=== PATIENT | male | born 1990 | race Caucasian/White ===

== ENCOUNTER → 2023-08-17 | Outpatient (CLI) | payer OTHER ==
[~2023-08-17] MED LIST: BACTRIM DS 8001 TA1 PO; DAYPRO600 M1 PO; FLEXERIL5 MG PO; HYDROCODONE BIT1 T11 PO; MOTRIN800 MG PO; PENICILLIN250 MG PO; PIROXICAN10 MG PO; ROBAXIN750 MG PO; SEPTDS PO; TRAMADOL HCL50 MG PO; TRIMOX500 MG PO
== END | disposition home or self-care (01) ==
LOC: ORTHO 02:58
PROVIDERS: ATTEND Orthopaedic Surgery
DX: M25.532 Pain in left wrist (principal); M25.832 Other specified joint disorders, left wrist

== ENCOUNTER → 2024-01-02 | Outpatient (CLI) | payer OTHER ==
[2024-01-02 16:12] LABS: BASO # 0.1 10*3/uL (0.0-0.1); BASO % 0.7 % (0.0-1.0); EOS # 0.2 10*3/uL (0.0-0.4); HEMATOCRIT 44.1 % (42.0-52.0); LYMPH # 2.2 10*3/uL (1.3-4.4); LYMPH % 22.8 % (27.0-41.0); MEAN CELL VOLUME 90.6 fl (80.0-94.0); MEAN CORPUSCULAR HGB 30.2 pg (27.0-31.0); MEAN CORPUSCULAR HGB CONC 33.3 g/dl (33.0-37.0); MEAN PLATELET VOLUME 9.1 fl (9.6-12.3); MONO # 0.6 10*3/uL (0.1-1.0); MONO % 6.3 % (3.0-9.0); NEUT # 6.5 10*3/uL (2.3-7.9); NEUT % 67.9 % (47.0-73.0); PLATELET COUNT AUTOMATED 244 10*3/uL (130-400); RED BLOOD COUNT 4.87 10*6/uL (4.50-5.90); RED CELL DISTRI WIDTH 12.5 % (0-14.5); WHITE BLOOD COUNT 9.6 10*3/uL (4.8-10.8)
[2024-01-02 16:42] LABS: ALKALINE PHOSPHATASE 63 U/L (46-116); BUN 11 mg/dl (9-23); CHLORIDE 102 mmol/L (98-107); CHOLESTEROL 128 mg/dL (<200); FREE T4 0.78 ng/dl (0.89-1.76); LDL CHOLESTEROL 61 mg/dL (9-159); POTASSIUM 3.5 mmol/L (3.4-5.1); SGPT/ALT 21 U/L (5-49); TOTAL PROTEIN 7.1 gm/dL (6.0-8.0); TRIGLYCERIDES 88 mg/dl (<150)
[2024-01-02 16:44] LABS: VITAMIN D, 25-HYDROXY 43.4 ng/mL (30-100)
== END | disposition home or self-care (01) ==
LOC: LAB 15:51
PROVIDERS: ATTEND Internal Medicine
DX: E29.1 Testicular hypofunction (principal); E34.9 Endocrine disorder, unspecified; Z12.5 Encounter for screening for malignant neoplasm of prostate; K21.00 Gastro-esophageal reflux disease with esophagitis, without bleeding; F17.210 Nicotine dependence, cigarettes, uncomplicated

== ENCOUNTER → 2024-09-08 | Outpatient (CLI) | payer OTHER ==
[2024-09-08 09:28] LABS: BASO # 0.1 10*3/uL (0.0-0.1); EOS # 0.1 10*3/uL (0.0-0.4); EOS % 1.9 % (1.0-4.0); HEMATOCRIT 47.1 % (42.0-52.0); MEAN CELL VOLUME 90.1 fl (80.0-94.0); MEAN CORPUSCULAR HGB 29.6 pg (27.0-31.0); MEAN CORPUSCULAR HGB CONC 32.9 g/dl (33.0-37.0); MONO # 0.6 10*3/uL (0.1-1.0); MONO % 9.9 % (3.0-9.0); NEUT # 3.6 10*3/uL (2.3-7.9); NEUT % 59.1 % (47.0-73.0); PLATELET COUNT AUTOMATED 290 10*3/uL (130-400); RED BLOOD COUNT 5.23 10*6/uL (4.50-5.90); RED CELL DISTRI WIDTH 12.5 % (0-14.5); WHITE BLOOD COUNT 6.2 10*3/uL (4.8-10.8)
[2024-09-08 10:32] LABS: VITAMIN D, 25-HYDROXY 41.6 ng/mL (30-100)
[2024-09-08 10:38] LABS: ALKALINE PHOSPHATASE 54 U/L (46-116); BUN 11 mg/dl (9-23); CHLORIDE 103 mmol/L (98-107); CHOLESTEROL 121 mg/dL (<200); FREE T4 1.06 ng/dl (0.89-1.76); LDL CHOLESTEROL 56 mg/dL (9-159); POTASSIUM 4.1 mmol/L (3.4-5.1); SGPT/ALT 30 U/L (5-49); TOTAL PROTEIN 7.3 gm/dL (6.0-8.0); TRIGLYCERIDES 171 mg/dl (<150)
== END | disposition home or self-care (01) ==
LOC: LAB 08:51
PROVIDERS: ATTEND Internal Medicine
DX: Z12.5 Encounter for screening for malignant neoplasm of prostate (principal); Z13.220 Encounter for screening for lipoid disorders; Z13.228 Encounter for screening for other metabolic disorders; Z13.29 Encounter for screening for other suspected endocrine disorder; Z13.0 Encounter for screening for diseases of the blood and blood-forming organs and certain disorders involving the immune mechanism; Z13.1 Encounter for screening for diabetes mellitus; Z13.6 Encounter for screening for cardiovascular disorders; E29.1 Testicular hypofunction; K21.00 Gastro-esophageal reflux disease with esophagitis, without bleeding; F17.290 Nicotine dependence, other tobacco product, uncomplicated; R53.83 Other fatigue; E53.9 Vitamin B deficiency, unspecified; E55.9 Vitamin D deficiency, unspecified